=== PATIENT | female | born 1960 | race Asian ===

== ENCOUNTER → 2018-07-28 | Day surgery (SDC) | payer BC ==
--- NOTE | 2018-07-28 16:07 | GENETICS ---
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 ERBT and chemotherapy. She was on Tamoxifen, Anastrozole and now is on Faslodex. She had a right US core biopsy today in the scar region. . She has a truncated maternal family history since her mother is a lonely child. Some of the family history is limited. ___ Family history of Cancer _x__ Personal history of Cancer ___ Personal and Family history of Cancer ___ Other: - Past Medical History Allergies/Adverse Reactions: Allergies Allergy/AdvReac Type Severity Reaction Status Date / Time MRI DYE Allergy Severe Rash Uncoded 06/09/11 17:55 ...LMP: 02/02/11 - Past Surgical History Additional Surgical History: Rigth breast wide excision SNBX neg 1.5 cm IDC ER/ PA+ HER2-. ERBT and chemotherapy on Faslodex age 50 - Smoking History Smoking history: Never smoked Have you smoked in the past 12 months: No - Alcohol/Substance Use Hx Alcohol Use: No Genetic Assess-Family History A detailed 3 (three) generation pedigree was obtained. Genetic Assessment-PE Other Findings-Behavioral / Physical Exam: Patient has appropriate behavior for genetic testing . No macrocephaly Genetic Assessment-Plan Discussion/Education: We discussed hereditary cancer predisposition testing in detail. In general, it is thought that only about 5-10% of all cancers is strongly hereditary while the remaining cancers are likely due to a combination of genetic and environmental factors (sporadic). With hereditary cancer, individuals are born with a mutation in a gene known to increase risk for developing cancer. Genetic testing is performed by analyzing the DNA code within genes of interest. We discussed the limitations and benefits of testing and possible results. Potential benefits of genetic testing include aiding in clinical management decisions, such as prophylactic surgeries, increased cancer screening, and/or hormonal therapies and identifying at risk family members. We also discussed concern about potential insurance discrimination, emotional ramifications, the possibility of invasive surgeries being recommended based on results, and the possibility of being at risk for cancer for which there is no proven screening protocol. We discussed the possible results (positive, negative, or inconclusive ). Inconclusive results may include but are not limited to variants of uncertain significance. A positive result would indicate that this individual is predisposed to certain types of cancer depending on the genetic mutation. We discussed that lifetime risks for BRCA carriers are up to 87% for breast cancer and 44% for ovarian cancer, amongst other cancer risks (pancreatic, prostate, male breast cancer, melanoma). Cancer risks and associated cancer types vary by gene mutation. Genes included in the panel are generally clinically actionable and a positive result could result in changes in management based on known cancer risk levels. Without genetic testing or if the testing does not reveal a clinically actionable mutation, this patient's risks may be estimated on personal and family history, and with the assistance of established risk calculators. Based on this patient's personal and family history, there is a possible inherited predisposition to cancer, therefore MYrisk) was offered. The patient decided to proceed with Myrisk The individual declined professional genetic counseling. All questions were answered and the patient seemed to have a good understanding of our discussion today. Plan: The patient will be called/ have a follow up office visit for results in 2-4 weeks. Right US core bx results pending. Continue breast survelance with Dr Fazal Escobar [facility]
--- NOTE | 2018-07-31 12:26 | OP ---
DATE OF OPERATION: 07/28/2018 PREOPERATIVE DIAGNOSIS: Right breast mass 5 o'clock 4 cm from the nipple. POSTOPERATIVE DIAGNOSIS: Right breast mass 5 o'clock 4 cm from the nipple. PROCEDURE: Right breast ultrasound-guided core biopsy with clip placement. ANESTHESIA: Local. ATTENDING SURGEON: Edwin Moraes MD ESTIMATED BLOOD LOSS: Minimal. COMPLICATIONS: None. DESCRIPTION OF PROCEDURE: The patient was made aware of the risks and benefits of the procedure and consented. She was placed in a supine position. Under sterile conditions with 1% lidocaine for local anesthesia, a small davis was made in the skin. Using a 13-gauge suction biopsy device via lateral approach, multiple cores were obtained under ultrasound guidance and sent in to Pathology. Likewise, under ultrasound guidance, a bowtie clip was placed into the biopsy region. Well tolerated by patient. Steri-Strips and a sterile bandage was applied. We will contact her with her results. EDWIN MORAES M.D. [id number]
--- NOTE | 2018-08-02 10:53 | PATH ---
Surgical Pathology Report Patient Name: RESHMA BEDOLLA [facility]. Rec. #: [id number] /Age/Gender: 1960 (Age: 58) / F Account: [id number] Location: [facility] AMBULATORY Taken: 07/28/2018 Received: 07/28/2018 Reported: 08/02/2018 Physicians: Ginger Dukes M.D. Specimen(s) Received RIGHT BREAST 5:00 4 CM FN CORE BX Clinical History Palpable mass Ultrasound findings: Probably benign Final Diagnosis BREAST, RIGHT, 5:00, 4 CM FN, CORE BIOPSY: FIBROADIPOSE TISSUE SHOWING FAT NECROSIS AND STROMAL FIBROSIS WITH ASSOCIATED CALCIFICATIONS. NEGATIVE FOR MALIGNANCY. Electronically Signed Oanh Jarrell M.D. Gross Description Received in formalin labeled "right breast biopsy 5:00, 4 cmfn," is a 1.7 x 1.5 x 0.2 cm aggregate of nieto-corbni fragments of necrotic material. The formalin is filtered and the specimen is entirely submitted in one cassette. Time to formalin fixation: < 1 minute Total formalin fixation time: Approximately 75 hours. /07/31/2018 saudi/07/31/2018
== END | disposition home or self-care (01) ==
LOC: FRADUS-SUR 14:03
PROVIDERS: ATTEND Surgery Surgical Oncology
PROC: 0HBT3ZX Excision of Right Breast, Percutaneous Approach, Diagnostic (ICD-10-PCS; principal; 2018-07-28)
DX: N60.31 Fibrosclerosis of right breast (principal)
CPT/HCPCS: 19083; 36415; 87899; 88305-TC; A4648; G0463